=== PATIENT | female | born 1975 | race Native Hawaiian/Other Pacific Islander ===

== ENCOUNTER 2021-02-25 12:15 | Outpatient (CLI) | payer BC, OTHER | END 2021-02-25 19:33 | disposition home or self-care (01) | LOC: RAD 12:15 | PROVIDERS: ATTEND Family Medicine | DX: R06.00 Dyspnea, unspecified (principal) ==

== ENCOUNTER → 2022-04-25 | Outpatient (CLI) | payer BC, OTHER | LOC: CT 18:06 | PROVIDERS: ATTEND Nurse Practitioner Family | DX: N20.2 Calculus of kidney with calculus of ureter (principal) ==

== ENCOUNTER 2022-08-15 11:56 | Outpatient (CLI) | payer BC | END 2022-08-15 22:02 | disposition home or self-care (01) | LOC: RAD 11:56 | PROVIDERS: ATTEND Nurse Practitioner Family | DX: N20.2 Calculus of kidney with calculus of ureter (principal) ==

== ENCOUNTER 2023-07-23 14:55 | Outpatient (CLI) | payer BC | END 2023-07-23 19:47 | disposition home or self-care (01) | LOC: MAMMO 14:55 | PROVIDERS: ATTEND Nurse Practitioner Family | DX: E78.2 Mixed hyperlipidemia (principal); Z12.31 Encounter for screening mammogram for malignant neoplasm of breast ==

== ENCOUNTER 2023-07-25 08:37 | Outpatient (CLI) | payer BC | END 2023-07-25 19:17 | disposition home or self-care (01) | LOC: RESP 08:37 | PROVIDERS: ATTEND Nurse Practitioner Family | DX: E78.2 Mixed hyperlipidemia (principal); Z12.31 Encounter for screening mammogram for malignant neoplasm of breast ==